=== PATIENT | male | born 1985 | race Two or more races ===

== ENCOUNTER → 2024-11-16 | Emergency (ER) | payer OTHER ==
[~2024-11-16] VITALS: Ht 170.2 cm; Wt 95.3 kg
[2024-11-16 21:52] VITALS: BP 141/80; O2SAT 98
== END | disposition left against medical advice (07) ==
LOC: ER 21:18
DX: Z53.21 Procedure and treatment not carried out due to patient leaving prior to being seen by health care provider (principal)